=== PATIENT | female | born 1965 | race African-American/Black ===

== ENCOUNTER → 2016-08-16 | Outpatient (CLI) | payer MEDICARE, OTHER ==
[2016-05-06 12:34] VITALS: BP 118/72
[~2016-08-16] MED LIST: AMLO10TA4 PO; AMLO5TAB4 PO; ATEN25TA PO; BUPR150T8 PO; BUPR75TA5 PO; CYCL10TA2 PO; DULO30CA2 PO; EZET1TAB19 PO; FENO145T PO; GLIM4TAB PO; HYDR-2666 PO; HYDR200T PO; INSU100C4 SQ; INSU100V31 SQ; INSU100V8 SQ; LEVO175T5 PO; LEVO25TA4 PO; LORA-434 PO; MISO200T PO; MISO200T4 PO; OMEP20CA5 PO; OMEP20CA9 PO; ONDA2VIA3 IV; ONDA4TAB7 PO; OXYC-323 PO; OXYC10TA32 PO; PROC5TAB34 PO; QUIN40TA PO; RISP2TAB33 PO; SIMV40TA PO; SITA100T PO; SITA25TA PO; SUCR1TAB29 PO; TRAM-29 PO; TRIA1CAP PO; TRIA1TAB2 PO; VENL150C PO; VENL75CA PO; ZOLP5TAB PO; ZOLP5TAB5 PO; [UNRECOGNIZED DRUG - CODE] PO
--- NOTE | 2016-08-16 16:25 | KCIC ---
BONE DENSITOMETRY SCAN, 08/16/2016: History: Postmenopausal screening, loss of height The lumbar spine and left hip were examined utilizing a DEXA technique. The bone mineral density in the lumbar spine as measured from the L1 through L4 levels is 1.33 grams per square centimeter. This yields a T-score of 2.6 which is in the normal range. The T-score at the left hip is 1.7 which is also in the normal range. IMPRESSION: Normal bone mineral density measurements Electronically signed by: Walter Shearer MD (Aug 16, 2016 16:23:27)
== END | disposition home or self-care (01) ==
LOC: KCIC DEXA 10:02
PROVIDERS: ATTEND Family Medicine
DX: Z78.0 Asymptomatic menopausal state (principal); R29.890 Loss of height
CPT/HCPCS: 77080

== ENCOUNTER 2016-09-06 17:23 | Emergency (ER) | payer MEDICARE, OTHER ==
[~2016-09-06] VITALS: Ht 162.6 cm; Wt 108.0 kg
[2016-09-06] MEDS ORDERED: ONDANSETRON PF 4 MG/2 ML VIAL. ONE (17:36)
[2016-09-06] MEDS ORDERED: ONDANSETRON PF 4 MG/2 ML VIAL. IV ONE ×2 (17:45→18:30)
[2016-09-06] MEDS ORDERED: IV NORMAL SALINE 1000ML BAG 1,000 ML IV SCH (17:54)
[2016-09-06] MEDS ORDERED: FENTANYL PF 100 MCG/2 ML VIAL. IV PRN (18:00)
--- NOTE | 2016-09-06 18:09 | PHYS DOC ---
Past Medical History Past Medical History: Depression, Diabetes-Type I, Fibromyalgia, High Cholesterol, Heart Disease, Hypertension, Hypothyroid, Schizophrenia, Other Additional Past Medical Histor: gastroparesis, CHRONIC BACK PAIN Past Surgical History: , Hysterectomy, Other Additional Past Surgical Histo: THYROID, Athroscopy RT KNEE Alcohol Use: None Drug Use: None Adult General Chief Complaint Chief Complaint: NAUSEA/VOMITING/DIARRHA HPI HPI Patient is a 51 year old female who presents with complaint of nausea, vomiting , and abdominal pain. Patient states her symptoms started last night. Patient states she has history of type 2 diabetes mellitus and gastroparesis. Patient states her symptoms tones are similar to previous exacerbations. Patient rates her pain to me as 10 out of 10 currently. Patient states she has had too numerous to count episodes of vomiting that has been nonbloody and nonbilious. The patient states that the pain is mostly in her upper abdomen. Patient also states that she is having back pain which is chronic but states that it has acutely worsened with onset of symptoms. Patient follows with Dr. Granda for primary care. Patient has not taken any medications to help with symptoms at this time. Review of Systems Review of Systems Constitutional: Denies fever or chills [] Eyes: Denies change in visual acuity, redness, or eye pain [] HENT: Denies nasal congestion or sore throat [] Respiratory: Denies cough or shortness of breath [] Cardiovascular: Denies chest pain or edema [] GI: Abdominal pain, nausea, vomiting, denies bloody stools or diarrhea [] : Denies dysuria or hematuria [] Musculoskeletal: Back pain [] Integument: Denies rash or skin lesions [] Neurologic: Denies headache, focal weakness or sensory changes [] Current Medications Current Medications Current Medications Medications (Trade) Dose Ordered Sig/Ana Paula Start Time Stop Time Status Last Admin Dose Admin Fentanyl Citrate 50 mcg 50 mcg PRN Q15MIN PRN 09/06/16 18:00 09/07/16 17:59 09/06/16 18:10 50 MCG Haloperidol Lactate (Haldol) 5 mg 1X ONCE 09/06/16 18:30 09/06/16 18:31 DC 09/06/16 18:13 5 MG Ondansetron HCl (Zofran) 4 mg 1X ONCE 09/06/16 18:30 09/06/16 18:31 DC Sodium Chloride (Iv Sodium Chloride 0.9% 1000ml Bag) 1,000 ml @ 1,000 mls/hr Q1H 09/06/16 17:54 09/06/16 18:53 DC 09/06/16 18:15 1,000 MLS/HR Allergies Allergies Allergies Coded Allergies Type Severity Reaction Last Updated Verified Penicillins Allergy Intermediate Swelling 07/17/14 Yes aspirin Allergy Intermediate nosebleeds 10/22/15 Yes caffeine Allergy Intermediate feels shaky 10/22/15 Yes codeine Allergy Intermediate makes me shaky 10/22/15 Yes latex Allergy Intermediate Rash 07/17/14 Yes Physical Exam Physical Exam Constitutional: Alert, afebrile, appears in moderate discomfort. [] HENT: Normocephalic, atraumatic, bilateral external ears normal, oropharynx moist, no oral exudates, nose normal. [] Eyes: PERRLA, EOMI, conjunctiva normal, no discharge. [] Neck: Normal range of motion, no tenderness, supple, no stridor. [] Cardiovascular:Heart rate regular rhythm, no murmur [] Lungs & Thorax: Bilateral breath sounds clear to auscultation [] Abdomen: Hypoactive bowel sounds, soft, tenderness palpation in all 4 quadrants , no masses, no pulsatile masses. [] Skin: Warm, dry, no erythema, no rash. [] Back: Bilateral paraspinous muscle tenderness in the mid and lower lumbar region , no midline tenderness, no CVA tenderness. [] Extremities: No tenderness, no cyanosis, no clubbing, ROM intact, no edema. [] Neurologic: Alert and oriented X 3, normal motor function, normal sensory function, no focal deficits noted. [] Current Patient Data Vital Signs Vital Signs Date Time Temp Pulse Resp B/P Pulse Ox O2 Delivery O2 Flow Rate FiO2 09/06/16 18:10 20 94 Room Air 09/06/16 17:40 98.0 83 145/78 98.0 Lab Values Laboratory Tests Test 09/06/16 18:20 09/06/16 18:37 White Blood Count 20.8x10^3/uL (4.0-11.0) H Red Blood Count 3.69x10^6/uL (3.50-5.40) Hemoglobin 11.7g/dL (12.0-15.5) L Hematocrit 34.9% (36.0-47.0) L Mean Corpuscular Volume 95fL (79-100) Mean Corpuscular Hemoglobin 32pg (25-35) Mean Corpuscular Hemoglobin Concent 34g/dL (31-37) Red Cell Distribution Width 14.1% (11.5-14.5) Platelet Count 347x10^3/uL (140-400) Neutrophils (%) (Auto) 87% (31-73) H Lymphocytes (%) (Auto) 8% (24-48) L Monocytes (%) (Auto) 4% (0-9) Eosinophils (%) (Auto) 0% (0-3) Basophils (%) (Auto) 0% (0-3) Neutrophils # (Auto) 18.1x10^3uL (1.8-7.7) H Lymphocytes # (Auto) 1.7x10^3/uL (1.0-4.8) Monocytes # (Auto) 0.9x10^3/uL (0.0-1.1) Eosinophils # (Auto) 0.0x10^3/uL (0.0-0.7) Basophils # (Auto) 0.1x10^3/uL (0.0-0.2) Segmented Neutrophils % 88% (35-66) H Band Neutrophils % 1% (0-9) Lymphocytes % 7% (24-48) L Monocytes % 4% (0-10) Platelet Estimate Adequate (ADEQUATE) Sodium Level 143mmol/L (136-145) Potassium Level 3.1mmol/L (3.5-5.1) L Chloride Level 103mmol/L (98-107) Carbon Dioxide Level 28mmol/L (21-32) Anion Gap 12 (6-14) Blood Urea Nitrogen 11mg/dL (7-20) Creatinine 1.1mg/dL (0.6-1.0) H Estimated GFR (Cockcroft-Gault) 62.9 BUN/Creatinine Ratio 10 (6-20) Glucose Level 262mg/dL (70-99) H Calcium Level 9.3mg/dL (8.5-10.1) Total Bilirubin 0.3mg/dL (0.2-1.0) Aspartate Amino Transferase (AST) 30U/L (15-37) Alanine Aminotransferase (ALT) 26U/L (14-59) Alkaline Phosphatase 44U/L (46-116) L Total Protein 8.6g/dL (6.4-8.2) H Albumin 4.3g/dL (3.4-5.0) Albumin/Globulin Ratio 1.0 (1.0-1.7) Lipase 79U/L (73-393) Glucose (Fingerstick) 251mg/dL (70-99) H Laboratory Tests 09/06/16 18:20 Laboratory Tests 09/06/16 18:20 EKG EKG Interpreted by me: Heart rate 91, sinus rhythm, normal intervals, normal axis, no acute ST/T-wave abnormalities present [] Radiology/Procedures Radiology/Procedures 3 view acute abdominal series interpreted by me: No infiltrates or effusions, normal cardiac silhouette, no free air under the diaphragm, nonobstructive bowel gas pattern [] Course & Med Decision Making Course & Med Decision Making Pertinent Labs and Imaging studies reviewed. (See chart for details) Patient was given IV fluids, fentanyl, Zofran, and Haldol. On reevaluation, patient states her symptoms have significantly improved. Patient was given lemon capitan grande soda in the emergency department which she was able to tolerate without difficulty. Patient was given an oral potassium pill for replacement. Patient will be discharged home with Zofran to help with symptoms and recommended follow-up in the next 3 days with patient's primary doctor. Advised return emergency department for any worsening symptoms. Patient voiced understanding and in agreement with treatment plan. Dragon Disclaimer Dragon Disclaimer This electronic medical record was generated, in whole or in part, using a voice recognition dictation system. Departure Departure Impression: Primary Impression: Nausea and vomiting Additional Impressions: Abdominal pain Gastroparesis Hypokalemia Disposition: 01 HOME, SELF-CARE Condition: IMPROVED Referrals: KAVEH GRANDA (PCP) Patient Instructions: Abdominal Pain (Nonspecific), Gastroparesis, Hypokalemia , Nausea and Vomiting Additional Instructions: Follow-up with your primary doctor in 3 days. Return to emergency department for any worsening symptoms. Scripts Ondansetron (Zofran Odt)4 Mg Tab.rapdis1 Tab SL Q8HRS NAUSEA/VOMITING #15 TAB Prov:MAX BROCK MD 09/06/16 Problem Qualifiers Primary Impression: Nausea and vomiting Vomiting type: unspecified Vomiting Intractability: non-intractable Qualified Code: R11.2 - Nausea with vomiting, unspecified Additional Impressions: Abdominal pain Abdominal location: epigastric Qualified Code: R10.13 - Epigastric pain MAX BROCK MD Sep 06, 2016 18:09
[2016-09-06 18:28] LABS: BASO # 0.1 x10^3/uL (0.0-0.2); BASO % 0 % (0-3); EOS % 0 % (0-3); HEMATOCRIT 34.9 % (36.0-47.0); HEMOGLOBIN 11.7 g/dL (12.0-15.5); LYMPH # 1.7 x10^3/uL (1.0-4.8); LYMPH % 8 % (24-48); MEAN CORPUSCULAR HEMOGLOBIN 32 pg (25-35); MEAN CORPUSCULAR HGB CONC 34 g/dL (31-37); MEAN CORPUSCULAR VOLUME 95 fL (79-100); MONO % 4 % (0-9); NEUT % 87 % (31-73); PLATELET COUNT 347 x10^3/uL (140-400); RED BLOOD COUNT 3.69 x10^6/uL (3.50-5.40); RED CELL DISTRIBUTION WIDTH 14.1 % (11.5-14.5); WHITE BLOOD COUNT 20.8 x10^3/uL (4.0-11.0)
[2016-09-06] MEDS ORDERED: HALOPERIDOL LACTATE 5 MG/ML VIAL. IVP ONE (18:30)
[2016-09-06 18:40] LABS: CALCIUM 9.3 mg/dL (8.5-10.1); CREATININE 1.1 mg/dL (0.6-1.0); GFR 62.9; POTASSIUM 3.1 mmol/L (3.5-5.1)
[2016-09-06 18:46] LABS: ALBUMIN 4.3 g/dL (3.4-5.0); TOTAL BILIRUBIN 0.3 mg/dL (0.2-1.0); TOTAL PROTEIN 8.6 g/dL (6.4-8.2)
[2016-09-06 19:19] LABS: PLT ESTIMATE ADEQUATE (ADEQUATE)
[2016-09-06 19:30] VITALS: BP 142/71
[2016-09-06] MEDS ORDERED: ONDA4TAB10 SL (19:34)
[2016-09-06] MEDS ORDERED: POTASSIUM CHLORIDE 20 MEQ TABLET.ER. PO ONE (20:30)
--- NOTE | 2016-09-07 06:51 | EKG ---
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
--- NOTE | 2016-09-07 08:35 | RAD ---
Abdomen series with chest, 3 views, 09/06/2016: History: Abdominal pain and vomiting There is a small amount of gas in the GI tract compatible with the given history of vomiting. The visualized bowel loops are not dilated. No free air seen in the abdomen. There is no evidence of organomegaly. Surgical clips in the right upper quadrant suggest a previous cholecystectomy. Moderate degenerative change is evident at the L4-5 disc level. The heart size is normal. The lungs are clear. There is no evidence of pleural fluid. IMPRESSION: No acute abdominal abnormality is detected.
== END 2016-09-06 20:00 | disposition home or self-care (01) ==
LOC: ER 17:23
DX: K31.84 Gastroparesis (principal); E11.43 Type 2 diabetes mellitus with diabetic autonomic (poly)neuropathy; E87.6 Hypokalemia; G89.29 Other chronic pain; F32.9 Major depressive disorder, single episode, unspecified; M79.7 Fibromyalgia; E78.00 Pure hypercholesterolemia, unspecified; I11.9 Hypertensive heart disease without heart failure; F20.9 Schizophrenia, unspecified; E89.0 Postprocedural hypothyroidism; Z91.040 Latex allergy status; Z88.6 Allergy status to analgesic agent; Z88.5 Allergy status to narcotic agent; Z88.0 Allergy status to penicillin; Z90.710 Acquired absence of both cervix and uterus
CPT/HCPCS: 36415; 74022; 80053; 82947; 83690; 85007; 85027; 93005; 96361; 96374; 96375; 99285; J1630; J2405; J3010; J7030

== ENCOUNTER → 2016-11-30 | Outpatient (CLI) | payer MEDICARE, OTHER ==
[~2016-11-30] MED LIST changes: +CONTRAST GIVEN MC PRN; -EZET1TAB19 PO; +EZET1TAB41 PO; -HYDR-2666 PO; +HYDR-2758 PO; +ONDA4TAB10 SL; -OXYC10TA32 PO; +OXYC10TA45 PO; -SUCR1TAB29 PO; +SUCR1TAB35 PO; -TRAM-29 PO; +TRAM-48 PO
[2016-11-30] MEDS: IOHEXOL 240 MG/ML 50ML VIAL. PO ONE (14:10)
[2016-11-30] MEDS: IOHEXOL 300 MG/ML 75 ML VIAL IV ONE (14:10)
== END | disposition home or self-care (01) ==
LOC: CT 13:03
PROVIDERS: ATTEND Internal Medicine Hematology & Oncology
DX: D73.9 Disease of spleen, unspecified (principal)
CPT/HCPCS: 74177; Q9966; Q9967

== ENCOUNTER 2016-12-20 18:18 | Emergency (ER) | payer MEDICARE, OTHER ==
[~2016-12-20 18:18] MED LIST changes: -CONTRAST GIVEN MC PRN
[2016-12-20] MEDS ORDERED: HALOPERIDOL LACTATE 5 MG/ML VIAL. IVP ONE ×4 (18:30→21:00)
[2016-12-20 18:56] LABS: BASO # 0.1 x10^3/uL (0.0-0.2); BASO % 1 % (0-3); EOS % 1 % (0-3); HEMATOCRIT 36.7 % (36.0-47.0); HEMOGLOBIN 12.4 g/dL (12.0-15.5); LYMPH # 2.5 x10^3/uL (1.0-4.8); LYMPH % 16 % (24-48); MEAN CORPUSCULAR HEMOGLOBIN 31 pg (25-35); MEAN CORPUSCULAR HGB CONC 34 g/dL (31-37); MEAN CORPUSCULAR VOLUME 91 fL (79-100); MONO % 6 % (0-9); NEUT % 78 % (31-73); PLATELET COUNT 339 x10^3/uL (140-400); RED BLOOD COUNT 4.03 x10^6/uL (3.50-5.40); RED CELL DISTRIBUTION WIDTH 13.1 % (11.5-14.5); WHITE BLOOD COUNT 15.8 x10^3/uL (4.0-11.0)
[2016-12-20 19:06] LABS: CALCIUM 10.1 mg/dL (8.5-10.1); CREATININE 1.6 mg/dL (0.6-1.0); GFR 40.8; POTASSIUM 3.5 mmol/L (3.5-5.1)
[2016-12-20 19:11] LABS: ALBUMIN 4.3 g/dL (3.4-5.0); TOTAL BILIRUBIN 0.6 mg/dL (0.2-1.0); TOTAL PROTEIN 8.7 g/dL (6.4-8.2)
[2016-12-20] MEDS ORDERED: IV NORMAL SALINE 1000ML BAG 1,000 ML IV ONE ×2 (19:15→20:00)
--- NOTE | 2016-12-20 19:19 | ED.ADGEN ---
Past Medical History Past Medical History: Depression, Diabetes-Type I, Fibromyalgia, High Cholesterol, Heart Disease, Hypertension, Hypothyroid, Schizophrenia, Other Additional Past Medical Histor: gastroparesis, CHRONIC BACK PAIN Past Surgical History: , Hysterectomy, Other Additional Past Surgical Histo: THYROID, Athroscopy RT KNEE Alcohol Use: None Drug Use: None Adult General Chief Complaint Chief Complaint: ABDOMINAL PAIN HPI HPI Patient is a 51 year old -[place] female with history of adult-onset type 1 diabetes, fibromyalgia, anxiety, hypertension gastroparesis who presents with epigastric pain with multiple episodes of emesis. Symptom onset was last night. Patient states she's been able to tolerate any oral intake. She last took her insulin when symptoms began over 24 hours ago. She reports feeling dizzy lightheaded with generalized malaise. She denies hematemesis, chest pain shortness of breath, palpitations, diarrhea or bloody stools. No other acute symptoms or complaints. Patient's accompanied at bedside by her significant other. Denies history of drugs or alcohol. Review of Systems Review of Systems ROS as per HPI. Current Medications Current Medications Current Medications Medications (Trade) Dose Ordered Sig/Ana Paula Start Time Stop Time Status Last Admin Dose Admin Ceftriaxone Sodium 1 gm/ Sodium Chloride 50 ml @ 100 mls/hr Q24H 12/21/16 21:00 Ceftriaxone Sodium 50 ml @ 100 mls/hr 1X ONCE 12/20/16 21:15 12/20/16 21:44 Haloperidol Lactate (Haldol) 2.5 mg 1X ONCE 12/20/16 21:00 12/20/16 21:01 DC Oxycodone/ Acetaminophen (Percocet 10/325) 1 tab 1X ONCE 12/20/16 21:15 12/20/16 21:16 Sodium Chloride 1,000 ml @ 1,000 mls/hr 1X ONCE 12/20/16 20:00 12/20/16 20:59 DC Allergies Allergies Allergies Coded Allergies Type Severity Reaction Last Updated Verified Penicillins Allergy Intermediate Swelling 07/17/14 Yes aspirin Allergy Intermediate nosebleeds 10/22/15 Yes caffeine Allergy Intermediate feels shaky 10/22/15 Yes codeine Allergy Intermediate makes me shaky 10/22/15 Yes latex Allergy Intermediate Rash 07/17/14 Yes Physical Exam Physical Exam Constitutional: Well developed, anxious. HENT: Normocephalic, atraumatic, bilateral external ears normal, oropharynx moist. Eyes: PERRLA, EOMI, conjunctiva normal, no discharge. Neck: Normal range of motion, supple. Cardiovascular:Heart rate regular rhythm, no murmur. Lungs & Thorax: Bilateral breath sounds clear to auscultation. Abdomen: Bowel sounds normal, soft, epigastric pain, tenderness. No R/R/G. Skin: Warm, dry. Back: No tenderness. Extremities: No tenderness. Neurologic: Alert and oriented X 3, normal motor function, normal sensory function, no focal deficits noted. Current Patient Data Vital Signs Vital Signs Date Time Temp Pulse Resp B/P (MAP) Pulse Ox O2 Delivery O2 Flow Rate FiO2 12/20/16 18:18 96.3 20 166/72 (103) 98 Room Air 96.3 Lab Values Laboratory Tests Test 12/20/16 18:48 12/20/16 20:25 12/20/16 20:47 White Blood Count 15.8 x10^3/uL (4.0-11.0) H Red Blood Count 4.03 x10^6/uL (3.50-5.40) Hemoglobin 12.4 g/dL (12.0-15.5) Hematocrit 36.7 % (36.0-47.0) Mean Corpuscular Volume 91 fL (79-100) Mean Corpuscular Hemoglobin 31 pg (25-35) Mean Corpuscular Hemoglobin Concent 34 g/dL (31-37) Red Cell Distribution Width 13.1 % (11.5-14.5) Platelet Count 339 x10^3/uL (140-400) Neutrophils (%) (Auto) 78 % (31-73) H Lymphocytes (%) (Auto) 16 % (24-48) L Monocytes (%) (Auto) 6 % (0-9) Eosinophils (%) (Auto) 1 % (0-3) Basophils (%) (Auto) 1 % (0-3) Neutrophils # (Auto) 12.3 x10^3uL (1.8-7.7) H Lymphocytes # (Auto) 2.5 x10^3/uL (1.0-4.8) Monocytes # (Auto) 0.9 x10^3/uL (0.0-1.1) Eosinophils # (Auto) 0.1 x10^3/uL (0.0-0.7) Basophils # (Auto) 0.1 x10^3/uL (0.0-0.2) Sodium Level 143 mmol/L (136-145) Potassium Level 3.5 mmol/L (3.5-5.1) Chloride Level 104 mmol/L (98-107) Carbon Dioxide Level 19 mmol/L (21-32) L Anion Gap 20 (6-14) H Blood Urea Nitrogen 25 mg/dL (7-20) H Creatinine 1.6 mg/dL (0.6-1.0) H Estimated GFR (Cockcroft-Gault) 40.8 BUN/Creatinine Ratio 16 (6-20) Glucose Level 234 mg/dL (70-99) H Calcium Level 10.1 mg/dL (8.5-10.1) Total Bilirubin 0.6 mg/dL (0.2-1.0) Aspartate Amino Transferase (AST) 45 U/L (15-37) H Alanine Aminotransferase (ALT) 35 U/L (14-59) Alkaline Phosphatase 53 U/L (46-116) Total Protein 8.7 g/dL (6.4-8.2) H Albumin 4.3 g/dL (3.4-5.0) Albumin/Globulin Ratio 1.0 (1.0-1.7) Lipase 104 U/L (73-393) Acetone Level Sm pos (NEG) Urine Collection Type Unknown Urine Color Yellow Urine Clarity Clear Urine pH 6.5 Urine Specific [place] 1.015 Urine Protein Negative mg/dL (NEG-TRACE) Urine Glucose (UA) Negative mg/dL (NEG) Urine Ketones (Stick) Trace mg/dL (NEG) Urine Blood Negative (NEG) Urine Nitrite Negative (NEG) Urine Bilirubin Small (NEG) Urine Urobilinogen Dipstick 1.0 mg/dL (0.2 mg/dL) Urine Leukocyte Esterase Negative (NEG) Urine RBC 0 /HPF (0-2) Urine WBC 1-4 /HPF (0-4) Urine Squamous Epithelial Cells Mod /LPF Urine Bacteria Moderate /HPF (0-FEW) Urine Hyaline Casts Moderate /HPF Urine Mucus Mod /LPF Glucose (Fingerstick) 201 mg/dL (70-99) H Laboratory Tests 12/20/16 18:48 Laboratory Tests 12/20/16 18:48 EKG EKG [EKG: Normal sinus rhythm, rate 100, no acute ST-T wave changes, nonspecific ST- T wave changes. QTC 481.] Course & Med Decision Making Course & Med Decision Making Pertinent Labs and Imaging studies reviewed. (See chart for details) [Patient reports nausea but does not have any witnessed vomiting episodes. She has nondescript upper abdominal pain consistent with gastroparesis and previous episodes of cyclic vomiting. Patient's vital signs are stable throughout ED visit. Fluid boluses given. Patient is able to tolerate oral fluids and and oxycodone. Patient does have a leukocytosis with urinary tract infection. IV antibiotics were given. Plan is to discharge the patient home with antiemetics and antibiotic medications. She is instructed to resume home insulin all up with her PCP early next week. Return precautions reviewed in detail with patient prior to departure.] Dragon Disclaimer Dragon Disclaimer This electronic medical record was generated, in whole or in part, using a voice recognition dictation system. LIZETH KRUEGER DO Dec 20, 2016 19:19
[2016-12-20 20:33] LABS: BILIRUBIN,URINE SMALL (NEG); GLUCOSE,URINE NEGATIVE (NEG); NITRITE,URINE NEGATIVE (NEG); PH,URINE 6.5; PROTEIN,URINE NEGATIVE (NEG-TRACE)
[2016-12-20 20:47] LABS: BACTERIA,URINE MODERATE /HPF (0-FEW); RBC,URINE 0 /HPF (0-2); SQUAMOUS EPITHELIAL CELL,UR MOD /LPF
[2016-12-20] MEDS ORDERED: oxyCODONE/APAP 10/325 1 TAB TABLET PO ONE (21:15)
[2016-12-20 22:00] VITALS: BP 147/80
--- NOTE | 2016-12-21 07:24 | EKG ---
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
== END 2016-12-20 23:00 | disposition home or self-care (01) ==
LOC: ER 18:18
DX: N39.0 Urinary tract infection, site not specified (principal); D72.829 Elevated white blood cell count, unspecified; K31.84 Gastroparesis; M79.7 Fibromyalgia; I11.9 Hypertensive heart disease without heart failure; E10.9 Type 1 diabetes mellitus without complications; E03.9 Hypothyroidism, unspecified; M54.9 Dorsalgia, unspecified; G89.29 Other chronic pain; Z90.710 Acquired absence of both cervix and uterus; Z88.0 Allergy status to penicillin; Z88.8 Allergy status to other drugs, medicaments and biological substances; Z88.6 Allergy status to analgesic agent
CPT/HCPCS: 36415; 80053; 81001; 82010; 82962; 83690; 85027; 87086; 93005; 96361; 96365; 96375; 96376; 99285; J0690; J1630; J7030

== ENCOUNTER 2017-03-04 14:37 | Emergency (ER) | payer MEDICARE, OTHER ==
[2017-03-04 15:17] VITALS: BP 108/66
[2017-03-04] MEDS ORDERED: NAPR500T PO (15:30)
[2017-03-04] MEDS ORDERED: KETOROLAC 60 MG/2 ML INJ. IM ONE (15:30)
[2017-03-04] MEDS ORDERED: NEOMY/BACITR/POLYMYXIN OINT PACKET. TP ONE (15:30)
[2017-03-04] MEDS ORDERED: DIPHTH,PERTUSS(ACELL),TET TOX 0.5 ML DISP.SYRIN. VAX IM ONE (15:30)
--- NOTE | 2017-03-04 15:30 | PHYS DOC ---
Past Medical History Past Medical History: Depression, Diabetes-Type I, Fibromyalgia, High Cholesterol, Heart Disease, Hypertension, Hypothyroid, Schizophrenia, Other Additional Past Medical Histor: gastroparesis, CHRONIC BACK PAIN Past Surgical History: , Hysterectomy, Other Additional Past Surgical Histo: THYROID, Athroscopy RT KNEE Alcohol Use: None Drug Use: None Adult General Chief Complaint Chief Complaint: UPPER EXTREMITY INJURY HPI HPI Patient is a 52 year old presents to the emergency department with complaints of a burn to the left forearm. She states she is taking a pizza out of the oven yesterday evening when she touched the frame of the oven was performed. She is here now seeking further evaluation Review of Systems Review of Systems Constitutional: Denies fever or chills [] Eyes: Denies change in visual acuity, redness, or eye pain [] HENT: Denies nasal congestion or sore throat [] Respiratory: Denies cough or shortness of breath [] Cardiovascular: No additional information not addressed in HPI [] GI: Denies abdominal pain, nausea, vomiting, bloody stools or diarrhea [] : Denies dysuria or hematuria [] Musculoskeletal: Denies back pain or joint pain [] Integument: burn] Neurologic: Denies headache, focal weakness or sensory changes [] Endocrine: Denies polyuria or polydipsia [] Current Medications Current Medications Current Medications Medications (Trade) Dose Ordered Sig/Ana Paula Start Time Stop Time Status Last Admin Dose Admin Ketorolac Tromethamine (Toradol Im) 60 mg 1X ONCE 03/04/17 15:30 03/04/17 15:31 Neomycin/ Polymyxin/ Bacitracin (Triple Antibiotic Ointment) 1 pkt 1X ONCE 03/04/17 15:30 03/04/17 15:31 Allergies Allergies Allergies Coded Allergies Type Severity Reaction Last Updated Verified Penicillins Allergy Intermediate Swelling 07/17/14 Yes aspirin Allergy Intermediate nosebleeds 10/22/15 Yes caffeine Allergy Intermediate feels shaky 10/22/15 Yes codeine Allergy Intermediate makes me shaky 10/22/15 Yes latex Allergy Intermediate Rash 07/17/14 Yes Physical Exam Physical Exam Constitutional: Well developed, well nourished, no acute distress, non-toxic appearance. [] HENT: Normocephalic, atraumatic, bilateral external ears normal, oropharynx moist, no oral exudates, nose normal. [] Eyes: PERRLA, EOMI, conjunctiva normal, no discharge. [] Neck: Normal range of motion, no tenderness, supple, no stridor. [] Cardiovascular:Heart rate regular rhythm, no murmur [] Lungs & Thorax: Bilateral breath sounds clear to auscultation [] Abdomen: Bowel sounds normal, soft, no tenderness, no masses, no pulsatile masses. [] Back: No tenderness, no CVA tenderness. [] Extremities: No tenderness, no cyanosis, no clubbing, ROM intact, no edema. Left forearm, lateral to the antecubital space, 2 cm by half centimeter second- degree burn. There is no surrounding erythema. Full range of motion of extremities without difficulty. Neurovascular intact distally. [] Neurologic: Alert and oriented X 3, normal motor function, normal sensory function, no focal deficits noted. [] Psychologic: Affect normal, judgement normal, mood normal. [] Current Patient Data Vital Signs Vital Signs Date Time Temp Pulse Resp B/P (MAP) Pulse Ox O2 Delivery O2 Flow Rate FiO2 03/04/17 15:17 98.3 83 18 96 Room Air 98.3 EKG EKG [] Radiology/Procedures Radiology/Procedures Procedure note: Wound was cleansed with normal saline, Neosporin applied. Band- Aid applied. Patient tolerated well.[] Course & Med Decision Making Course & Med Decision Making Pertinent Labs and Imaging studies reviewed. (See chart for details) [] Dragon Disclaimer Dragon Disclaimer This electronic medical record was generated, in whole or in part, using a voice recognition dictation system. Departure Departure Impression: Primary Impression: Burn of second degree of left forearm, initial encounter Disposition: 01 HOME, SELF-CARE Condition: STABLE Referrals: KAVEH GRANDA (PCP) Patient Instructions: Burn Care Additional Instructions: Follow-up with your primary care provider in 2-3 days, sooner if problems arise. Scripts Naproxen (NAPROSYN) 500 Mg Tablet 500 MG PO BID Y for PAIN, #20 TAB Prov: ANGELIAC KELLEY APRN 03/04/17 ANGELICA KELLEY APRN Mar 04, 2017 15:30
== END 2017-03-04 15:53 | disposition home or self-care (01) ==
LOC: ER 14:37
DX: T22.012A Burn of unspecified degree of left forearm, initial encounter (principal); I13.10 Hypertensive heart and chronic kidney disease without heart failure, with stage 1 through stage 4 chronic kidney disease, or unspecified chronic kidney disease; E10.22 Type 1 diabetes mellitus with diabetic chronic kidney disease; N18.9 Chronic kidney disease, unspecified; E78.00 Pure hypercholesterolemia, unspecified; E03.9 Hypothyroidism, unspecified; M79.7 Fibromyalgia; F20.9 Schizophrenia, unspecified; G89.29 Other chronic pain; E10.43 Type 1 diabetes mellitus with diabetic autonomic (poly)neuropathy; K31.84 Gastroparesis; Z90.710 Acquired absence of both cervix and uterus; Z88.0 Allergy status to penicillin; Z88.6 Allergy status to analgesic agent; Z88.5 Allergy status to narcotic agent; Z91.040 Latex allergy status; Z91.018 Allergy to other foods; W86.1XXA Exposure to industrial wiring, appliances and electrical machinery, initial encounter; Y93.G9 Activity, other involving cooking and grilling; Y99.8 Other external cause status; Y92.89 Other specified places as the place of occurrence of the external cause
CPT/HCPCS: 90471; 90715; 96372; 99284; J1885

== ENCOUNTER 2017-09-23 11:48 | Emergency (ER) | payer MEDICARE, OTHER ==
[2017-09-23] MEDS: IV NORMAL SALINE 1000ML BAG 1,000 ML IV ×2 (12:15→13:28)
[2017-09-23] MEDS: HALOPERIDOL LACTATE 5 MG/ML VIAL. IVP (12:16)
[2017-09-23] MEDS: PANTOPRAZOLE IV PUSH 40 MG VIAL. IVP (12:18)
[2017-09-23 13:08] LABS: ADD MAN DIFF? YES; BASO % 0 % (0-3); EOS % 0 % (0-3); HEMOGLOBIN 12.2 g/dL (12.0-15.5); LYMPH # 1.5 x10^3/uL (1.0-4.8); LYMPH % 8 % (24-48); MEAN CORPUSCULAR HEMOGLOBIN 31 pg (25-35); MEAN CORPUSCULAR HGB CONC 34 g/dL (31-37); MEAN CORPUSCULAR VOLUME 91 fL (79-100); MONO # 1.1 x10^3/uL (0.0-1.1); MONO % 6 % (0-9); NEUT # 15.7 x10^3uL (1.8-7.7); NEUT % 86 % (31-73); PLATELET COUNT 405 x10^3/uL (140-400); RED BLOOD COUNT 3.96 x10^6/uL (3.50-5.40); WHITE BLOOD COUNT 18.4 x10^3/uL (4.0-11.0)
[2017-09-23 13:26] LABS: % BANDS 1 % (0-9); % LYMPHS 6 % (24-48); % MONOS 5 % (0-10); % SEGS 88 % (35-66); PLT ESTIMATE INCREASED (ADEQUATE)
[2017-09-23 13:27] LABS: ANISOCYTOSIS SLIGHT
[2017-09-23 13:28] LABS: TROPONINI < 0.017 ng/mL (0.000-0.055)
[2017-09-23 14:00] LABS: ANION GAP 12 (6-14); BLOOD UREA NITROGEN 17 mg/dL (7-20); BUN/CREATININE RATIO 15 (6-20); CALCIUM 9.4 mg/dL (8.5-10.1); CARBON DIOXIDE 25 mmol/L (21-32); CHLORIDE 105 mmol/L (98-107); CREATININE 1.1 mg/dL (0.6-1.0); GFR 62.6; GLUCOSE 288 mg/dL (70-99); POTASSIUM 3.7 mmol/L (3.5-5.1); SODIUM 142 mmol/L (136-145)
[2017-09-23 14:01] LABS: POC GLUCOSE 251 mg/dL (70-99)
[2017-09-23 14:02] LABS: ALBUMIN 3.8 g/dL (3.4-5.0); ALK PHOS 63 U/L (46-116); ALT (SGPT) 21 U/L (14-59); AST (SGOT) 23 U/L (15-37); LIPASE 77 U/L (73-393); TOTAL BILIRUBIN 0.3 mg/dL (0.2-1.0); TOTAL PROTEIN 7.7 g/dL (6.4-8.2)
[2017-09-23] MEDS: ONDANSETRON PF 4 MG/2 ML VIAL. IV (14:05)
[2017-09-23 14:08] LABS: BASE EXCESS ABG -2 mmol/L (-3-3); HCO3 ABG 23 mmol/L (21-28); PCO2 ABG 37 mmHg (35-46); PH ABG 7.41 (7.35-7.45); PO2 ABG 90 mmHg (75-108); SAT O2 ABG 96 % (92-99)
[2017-09-23 14:10] LABS: FIO2 ABG 21
[2017-09-23 14:15] LABS: ACETONE NEG (NEG)
== END 2017-09-23 16:19 | disposition home or self-care (01) ==
LOC: ER 11:48
DX: R10.13 Epigastric pain (principal); R11.2 Nausea with vomiting, unspecified; E10.65 Type 1 diabetes mellitus with hyperglycemia; E78.00 Pure hypercholesterolemia, unspecified; E03.9 Hypothyroidism, unspecified; F20.9 Schizophrenia, unspecified; I11.9 Hypertensive heart disease without heart failure; M79.7 Fibromyalgia; G89.29 Other chronic pain; Z90.710 Acquired absence of both cervix and uterus; Z88.0 Allergy status to penicillin; Z88.6 Allergy status to analgesic agent; Z88.5 Allergy status to narcotic agent; Z88.8 Allergy status to other drugs, medicaments and biological substances; Z91.040 Latex allergy status
CPT/HCPCS: 36415; 36600; 80053; 82010; 82805; 82962; 83690; 84484; 85007; 85025; 93005; 96361; 96374; 96375; 99285-25; C9113; J1630; J2405; J7030

== ENCOUNTER → 2017-09-26 | Outpatient (CLI) | payer MEDICARE, OTHER | END | disposition home or self-care (01) | LOC: RAD 12:46 | DX: M79.642 Pain in left hand (principal); M79.641 Pain in right hand; E03.9 Hypothyroidism, unspecified; I13.10 Hypertensive heart and chronic kidney disease without heart failure, with stage 1 through stage 4 chronic kidney disease, or unspecified chronic kidney disease; E10.22 Type 1 diabetes mellitus with diabetic chronic kidney disease; N18.9 Chronic kidney disease, unspecified | CPT/HCPCS: 73130 ==

== ENCOUNTER 2017-11-11 17:20 | Emergency (ER) | payer MEDICARE, OTHER | END 2017-11-11 18:02 | disposition home or self-care (01) | LOC: ER 17:20 | DX: T25.621A Corrosion of second degree of right foot, initial encounter (principal); E11.43 Type 2 diabetes mellitus with diabetic autonomic (poly)neuropathy; K31.84 Gastroparesis; I11.9 Hypertensive heart disease without heart failure; G89.29 Other chronic pain; E03.9 Hypothyroidism, unspecified; F20.9 Schizophrenia, unspecified; E78.00 Pure hypercholesterolemia, unspecified; M79.7 Fibromyalgia; Z88.0 Allergy status to penicillin; Z88.6 Allergy status to analgesic agent; Z88.5 Allergy status to narcotic agent; Z91.040 Latex allergy status; W22.8XXA Striking against or struck by other objects, initial encounter; Y93.02 Activity, running; Y99.8 Other external cause status; Y92.89 Other specified places as the place of occurrence of the external cause | CPT/HCPCS: 99284 ==

== ENCOUNTER → 2018-03-03 | Outpatient (CLI) | payer MEDICARE, OTHER ==
[2017-11-11 17:21] VITALS: BP 142/85
[~2018-03-03] MED LIST changes: +CONTRAST GIVEN. MC PRN; -HYDR200T PO; +HYDR200T71 PO; +IOHEXOL 240 MG/ML 50ML VIAL. PO ONE; +IOHEXOL 300 MG/ML 100ML VIAL. IV ONE; +NAPR-683 PO; +PROM25TA10 PO; +SULF1TAB24 PO
[2018-03-03 10:28] LABS: CREATININE 0.9 mg/dL (0.6-1.0); GFR 78.7
--- NOTE | 2018-03-03 12:19 | RAD ---
CT of the abdomen and pelvis with contrast 03/03/2018 INDICATION: Follow-up splenic lesion COMPARISON STUDY: CT of the abdomen and pelvis November 30, 2016. TECHNIQUE: Multidetector CT imaging of the abdomen and pelvis was obtained following the administration of IV contrast FINDINGS: Visualized lung bases demonstrate mild dependent atelectasis. There is a 4.2 cm hypodense mass in the anterolateral spleen. The appearance is similar to prior studies. Prior cholecystectomy is noted. The liver is unremarkable otherwise. The adrenal glands are within normal limits. The pancreas is grossly normal. Tiny hypodensities in the inferior spleen consistent with small cysts. Appearance is unchanged. There is no evidence of bowel obstruction. No evidence of acute inflammatory change involving the bowel is identified. Appendix is unremarkable. Bladder is grossly unremarkable in appearance. Prior hysterectomy noted. No free fluid or free air is seen in the abdomen or pelvis. Fat filled umbilical hernia is similar to prior exam. No acute osseous changes are identified. Degenerative changes at all for L5 with vertebral body height loss and significant vertebral sclerosis. Posterior disc osteophyte complexes are noted appearance is similar to comparison study. IMPRESSION: 1. Grossly unchanged appearance of 4.2 cm hypodense mass in the anterior lateral spleen. Given stability over time a benign etiology is favored. 2. No acute intra-abdominal abnormality is seen CT DOSING PQRS STATEMENT: One or more of the following individualized dose reduction techniques were utilized for this examination: 1. Automated exposure control 2. Adjustment of the mA and/or kV according to patient size 3. Use of iterative reconstruction technique Electronically signed by: Henrry Stinson MD (03/03/2018 12:16 PM) [id number]
== END | disposition home or self-care (01) ==
LOC: CT 10:00
PROVIDERS: ATTEND Internal Medicine Hematology & Oncology
DX: D73.89 Other diseases of spleen (principal); K42.9 Umbilical hernia without obstruction or gangrene; M51.36 Other intervertebral disc degeneration, lumbar region; M25.78 Osteophyte, vertebrae; J98.11 Atelectasis; Z90.49 Acquired absence of other specified parts of digestive tract
CPT/HCPCS: 36415; 74177; 82565; 84520; Q9966; Q9967

== ENCOUNTER → 2018-12-08 | Outpatient (CLI) | payer MEDICARE, OTHER ==
[2017-11-11 17:21] VITALS: BP 142/85
[~2018-12-08] MED LIST changes: -CONTRAST GIVEN. MC PRN; -HYDR-2758 PO; +HYDR-2761 PO; -IOHEXOL 240 MG/ML 50ML VIAL. PO ONE; -IOHEXOL 300 MG/ML 100ML VIAL. IV ONE; +OMEP20CA10 PO; -OMEP20CA9 PO; -OXYC-323 PO; -OXYC10TA45 PO; +OXYC10TA46 PO; +OXYC1TAB15 PO
--- NOTE | 2018-12-08 14:36 | RAD ---
DATE: 12/08/2018 EXAM: MAMMO KRISTY SCREENING BILATERAL HISTORY: Routine screening. COMPARISON: Previous mammogram from 2014. This study was interpreted with the benefit of Computerized Aided Detection (CAD). FINDINGS: Breast Density: SCATTERED The breast parenchyma shows scattered fibroglandular densities. Breast parenchyma level B. The skin and nipples are within normal limits. Left retroareolar breast mass is seen. No suspicious calcifications. IMPRESSION: Left retroareolar breast abnormality. BI-RADS CATEGORY: 0 INCOMPLETE: NEED ADDITIONAL IMAGING EVAULATION AND/OR PRIOR MAMMOGRAMS FOR COMPARISON RECOMMENDED FOLLOW-UP: ADD ADDITIONAL IMAGING. Ultrasound of the retroareolar left breast recommended. PQRS compliance statement: Patient information was entered into a reminder system with a target due date for the next mammogram. Mammography is a sensitive method for finding small breast cancers, but it does not detect them all and is not a substitute for careful clinical examination. A negative mammogram does not negate a clinically suspicious finding and should not result in delay in biopsying a clinically suspicious abnormality. "Our facility is accredited by the [employer] Mammography Program."
== END | disposition home or self-care (01) ==
LOC: MAMMO 11:07
PROVIDERS: ATTEND Family Medicine
DX: Z12.31 Encounter for screening mammogram for malignant neoplasm of breast (principal); N63.20 Unspecified lump in the left breast, unspecified quadrant
CPT/HCPCS: 77063; 77067

== ENCOUNTER → 2018-12-11 | Outpatient (CLI) | payer MEDICARE ==
[2017-11-11 17:21] VITALS: BP 142/85
--- NOTE | 2018-12-11 13:08 | RAD ---
Indication: Left breast callback TECHNIQUE: Focused left breast ultrasound COMPARISON: Most recent mammogram from 12/08/2018. FINDINGS: In the retroareolar breast there is a 1.6 x 0.5 x 1.0 cm cystic lesion which is serpiginous in morphology most likely a dilated duct. Small echogenic focus is seen within this lesion approximately measuring 2 mm without internal vascularity. IMPRESSION: Solitary dilated retroareolar duct corresponding to mammographic abnormality with a single polypoid entity within the stomach which may represent a focal debris. BI-RADS 3: Probably benign. Follow-up ultrasound in 4-6 months recommended. Electronically signed by: Alberto Hernández DO (12/11/2018 1:05 PM) [facility]
== END | disposition home or self-care (01) ==
LOC: US 11:58
PROVIDERS: ATTEND Family Medicine
DX: N64.89 Other specified disorders of breast (principal)
CPT/HCPCS: 76641

== ENCOUNTER → 2020-06-09 | Outpatient (CLI) | payer MEDICARE, OTHER ==
[2017-11-11 17:21] VITALS: BP 142/85
[~2020-06-09] MED LIST changes: +CONTRAST GIVEN. MC PRN; +IOHEXOL 240 MG/ML 50ML VIAL. PO ONE; +IOHEXOL 300 MG/ML 100ML VIAL. IV ONE; +MISO200T16 PO; -MISO200T4 PO; -OMEP20CA10 PO; +OMEP20CA16 PO
[2020-06-09 08:58] LABS: CREATININE 1.1 mg/dL (0.6-1.0); GFR 61.9
--- NOTE | 2020-06-09 17:30 | RAD ---
PQRS Compliance Statement: One or more of the following individualized dose reduction techniques were utilized for this examinat ion: 1. Automated exposure control 2. Adjustment of the mA and/or kV according to patient size 3. Use of iterative reconstruction technique CT abdomen/pelvis with contrast 06/09/2020 8:29 AM INDICATION: Enlarged spleen COMPARISON: CT abdomen/pelvis 03/03/2018 TECHNIQUE: Multiple axial CT images of the abdomen and pelvis were obtained after the intravenous adm inistration of 75 mL Omnipaque 300. Coronal and sagittal reformats are provided. FINDINGS: There is bibasilar subsegmental atelectasis. Heart size is within normal limits. Mild hypoattenuation the hepatic parenchyma suggestive of hepatic steatosis. Gallbladder surgically absent. Portal venous system is widely patent. There is a cystic lesion within the lateral spleen measuring 4.5 x 4.1 cm, stable from 03/03/2018 and presumed benign. Bilateral adrenal glands and pancreas are normal in appear ance. The abdominal aorta is normal in course and caliber. There are no pathologically enlarged lymph nodes in the abdomen and pelvis. There is no abdominal free fluid. There is no free intraperitoneal air. M ild calcified atheromatous plaque is identified involving the abdominal aorta. Small volume fecal matter identified throughout the colon. Oral contrast was administered. Opacified bowel loops demonstrate normal mucosal fold pattern. Small and large bowel are normal in caliber. The re is no evidence for bowel obstruction. There are no pericolonic inflammatory changes. A normal, non dilated appendix is visualized without adjacent inflammatory changes. Indeterminate hypoattenuating lesion in the inferior pole the right kidney measures 12 mm, previously 10 mm (series 2, image 41) measuring higher than that of simple fluid. No hydronephrosis. Urinary bl adder is within normal limits in degree of distention. No suspicious pelvic mass is identified. There is a fat-containing umbilical hernia measuring 4.3 cm at the neck. No suspicious osseous abnormality is identified. Advanced degenerative disc disease identified at L4-L5 with a posterior disc osteophy te complex resulting in at least mild spinal canal stenosis. IMPRESSION: 1. Stable cystic lesion within the lateral spleen measuring 4.5 x 4.1 cm, stable from 03/03/2018 and presumed benign. 2. Mild hepatic steatosis. 3. Indeterminate hypoattenuating lesion in the inferior pole the right kidney measures 12 mm, previo usly 10 mm. Further evaluation with renal ultrasound is recommended. 4. Fat-containing umbilical hernia measuring 4.3 cm at the neck. 5. Advanced degenerative disc disease at L4-L5 with a posterior disc osteophyte complex resulting in at least mild spinal canal stenosis. Electronically signed by: Isabella Herndon MD (06/09/2020 5:28 PM) [id number]
== END ==
LOC: CT 08:52
PROVIDERS: ATTEND Internal Medicine
DX: K42.9 Umbilical hernia without obstruction or gangrene (principal); R16.1 Splenomegaly, not elsewhere classified; J98.11 Atelectasis; K76.0 Fatty (change of) liver, not elsewhere classified; M51.36 Other intervertebral disc degeneration, lumbar region; M48.061 Spinal stenosis, lumbar region without neurogenic claudication; Z90.49 Acquired absence of other specified parts of digestive tract
CPT/HCPCS: 36415; 74177; 82565; 84520; Q9966; Q9967

== ENCOUNTER → 2020-08-09 | Outpatient (CLI) | payer MEDICARE, OTHER ==
[2017-11-11 17:21] VITALS: BP 142/85
[~2020-08-09] MED LIST changes: -CONTRAST GIVEN. MC PRN; -IOHEXOL 240 MG/ML 50ML VIAL. PO ONE; -IOHEXOL 300 MG/ML 100ML VIAL. IV ONE
--- NOTE | 2020-08-09 10:28 | RAD ---
Examination: 1. Bilateral digital diagnostic mammogram. 2. Left digital diagnostic breast ultrasound. INDICATION: Bilateral expressible clear nipple discharge for greater than a year. She also presents f or completion of recommended follow-up imaging from her last diagnostic breast ultrasound. She is due for screening. COMPARISON: Left breast diagnostic ultrasound of 12/11/2018 and bilateral diagnostic mammogram of 12/08 FINDINGS: Bilateral mammogram shows the breasts are almost entirely fatty replaced. The right mammogram is negative. The left mammogram shows a decrease in size of the subareolar left n odular opacity initially recalled from screening. No suspicious calcifications or architectural disto rtion is noted. Targeted ultrasound of the subareolar left breast shows a dilated subareolar duct with intraductal de bris but no discrete mass. This measures up to 4 mm in diameter. Sonographic survey of the left axill a reveals no adenopathy. IMPRESSION: Benign findings on bilateral diagnostic mammogram and limited left breast ultrasound. Recommend clinical management of bilateral expressible nipple discharge and return to routine screeni ng next due in one year in the absence of any clinically suspicious findings. If there are any clinic ally suspicious findings, these should be considered for biopsy. BI-RADS Category 2 Benign findings Patient entered into a reminder system with targeted due date for next mammogram. Electronically signed by: Satish Torrez MD (08/09/2020 10:26 AM) [id number]
== END ==
LOC: MAMMO 11:08
PROVIDERS: ATTEND Internal Medicine
DX: R92.8 Other abnormal and inconclusive findings on diagnostic imaging of breast (principal)
CPT/HCPCS: 76641; 77066; G0279; 77062

== ENCOUNTER → 2020-09-05 | Outpatient (CLI) | payer MEDICARE, OTHER ==
[2017-11-11 17:21] VITALS: BP 142/85
--- NOTE | 2020-09-05 16:08 | RAD ---
EXAM: XR CHEST 2V 09/05/2020 9:58 AM CLINICAL INDICATION: Left rib pain COMPARISON: None TECHNIQUE: PA and lateral views of the chest FINDINGS: The heart and mediastinum are normal. Lungs are well-expanded and clear. No consolidatio n, pleural effusion, or pneumothorax. Pulmonary vascularity is normal. No acute osseous abnormality. . There are surgical clips in the right upper quadrant. IMPRESSION: No acute cardiopulmonary abnormality. Electronically signed by: Verónica Tucker MD (09/05/2020 4:05 PM) [id number]
== END ==
LOC: RAD 09:36
PROVIDERS: ATTEND Internal Medicine
DX: R07.81 Pleurodynia (principal)
CPT/HCPCS: 71046

== ENCOUNTER → 2021-08-28 | Outpatient (CLI) | payer MEDICARE, OTHER ==
[2017-11-11 17:21] VITALS: BP 142/85
[~2021-08-28] MED LIST changes: +CYCL10TA19 PO; -CYCL10TA2 PO; -VENL150C PO; +VENL150C3 PO
--- NOTE | 2021-08-28 12:00 | RAD ---
BILATERAL DIGITAL SCREENING 2-D AND 3-D MAMMOGRAM INDICATION: Routine screening. COMPARISON: August 09, 2020 December 08, 2018 October 26, 2015 and March 16, 2015 and March 10, 2015 Interpretation was made using CAD. FINDINGS: There are bilateral benign appearing entries in the subareolar regions. Breast Density: There are scattered areas of fibroglandular density. RIGHT BREAST: No suspicious masses, calcifications or areas of architectural distortion are seen. LEFT BREAST: No suspicious masses, calcifications or areas of architectural distortion are seen. IMPRESSION: 1. No imaging evidence of malignancy. ASSESSMENT: BI-RADS 2. Benign findings. RECOMMENDATION: Routine annual screening mammogram. The facility will notify the patient of the results via mail. Patient information was entered into a reminder system with a target due date for the next mammogram. A reminder letter will be generated by the facility. Electronically signed by: Nat Coreas MD (08/28/2021 11:57 AM) [id number]
== END ==
LOC: MAMMO 08:34
PROVIDERS: ATTEND Internal Medicine
DX: Z12.31 Encounter for screening mammogram for malignant neoplasm of breast (principal)
CPT/HCPCS: 77063; 77067